=== PATIENT | male | born 1955 | race Caucasian/White ===

== ENCOUNTER 2018-08-14 17:10 | Observation (INO) ==
[2018-08-14 17:53] LABS: INR 0.95; PROTIME 13.2 Seconds (11.0-16.0)
[2018-08-14 17:54] LABS: PTT 32.6 Seconds (22.3-41.8)
[2018-08-14 17:56] LABS: AGAP 6; ALBUMIN 3.8 g/dL (3.5-5.0); ALKALINE PHOSPHATASE 98 U/L (32-122); BUN 20 mg/dL (8-22); CALCIUM 8.7 mg/dL (8.8-10.2); CHLORIDE 101 mmol/L (98-107); CK PROFILE 97 U/L (24-204); COSMO 287; CREATININE 1.1 mg/dL (0.7-1.2); ESTIMATED GFR > 60; GLUCOSE 81 mg/dL (70-104); GOT 33 U/L (10-34); GPT 46 U/L (10-44); POTASSIUM 4.6 mmol/L (3.5-5.1); SODIUM 143 mmol/L (136-145); TCO2 36 mmol/L (25-35); TOTAL PROTEIN 6.5 g/dL (6.3-8.3)
[2018-08-14 17:57] LABS: BE 8.7 mmoll (-3.0-3.0); BLOOD TYPE ARTERIAL; HCO3-(ACT) 31.5 mmoll (20.0-26.0); METHB 0.8 % (0.0-1.5); O2(CT) 14.6 mL/dL (15.0-23.0); PO2(98.6) 59 mmHg (60-100); SAMPLE BLOOD; THB 11.8 g/dL (11.5-17.4); pH(98.6) 7.34 (7.35-7.45)
[2018-08-14 18:08] LABS: BASO# 0.06 X1000 (0.0-0.2); BASO% 1.2 % (0.0-0.8); EOS# 0.03 X1000 (0.0-0.7); EOS% 0.6 % (0.0-10.0); HEMATOCRIT 40.6 % (42.0-52.0); HEMOGLOBIN 11.4 g/dL (14.0-18.0); IMM GRAN# 0.02 X1000 (0.0-0.04); IMM GRAN% 0.4 % (0.0-0.5); LYMPH# 1.67 X1000 (1.2-3.4); LYMPH% 33.9 % (20.5-51.1); MCH 22.8 PG (27-31); MCHC 28.1 g/dL (33-37); MONO# 0.65 X1000 (0.11-0.59); MONO% 13.2 % (1.7-9.3); MPV 11.6 FL (7.4-10.4); NEUT% 50.7 % (42.2-75.2); PLT 156 X1000 (130-400); RBC 5.01 XMIL (4.7-6.1); RDW 18.4 % (11.5-14.5); WBC 4.93 X1000 (4.8-10.8)
[2018-08-14 18:11] LABS: MODALITY CANNULA; O2HB 88.1 % (95.0-99.0); PCO2(98.6) 68 mmHg (35-45)
[2018-08-14 18:12] LABS: ALLEN TEST NO
--- NOTE | 2018-08-14 18:28 | Diag Imaging Result Doc PS360 ---
EXAM: CHEST-2 VIEWS 08/14/2018 HISTORY: sob TECHNIQUE: Two views the chest COMMENT: There is subsegmental platelike atelectasis in the lingula and right middle lobe. The heart size is enlarged. The inspiration is suboptimal. There are no previous studies. IMPRESSION: Bibasilar atelectasis. Electronically signed by Kobe Fernando 08/14/2018 6:26 PM
--- NOTE | 2018-08-14 18:42 | PROVIDER DOCUMENTATION ---
This chart was entered by Annie Ling Scribe, acting as scribe for Zack Astudillo MD. HPI-Respiratory General - General Source: patient, family () <Zack Astudillo - Last Filed: 08/14/18 18:42> <Neto Garcia - Last Filed: 08/15/18 06:03> - General Chief Complaint: Shortness of Breath Stated Complaint: SHORTNESS OF BREATH Time Seen by Provider: 08/14/18 17:45 Allergies/Adverse Reactions: Patient Allergies Allergy/AdvReac Type Severity Reaction Status Date / Time No Known Allergies Allergy Verified 08/14/18 20:51 Home Medications: Home Medication List Medication Instructions Recorded Confirmed Last Taken Type Atorvastatin Calcium 80 mg PO DAILY 08/14/18 08/14/18 Unknown History Azithromycin 250 mg PO DAILY 08/14/18 08/14/18 Unknown History Bupropion HCl [Wellbutrin Xl] 1 tab PO DAILY 08/14/18 08/14/18 Unknown History Cyanocobalamin (Vitamin B-12) 100 mcg PO DAILY 08/14/18 08/14/18 Unknown History [Cyanocobalamin] Furosemide 40 mg PO BID 08/14/18 08/14/18 Unknown History Ibuprofen 800 mg PO DAILY 08/14/18 08/14/18 Unknown History Methocarbamol 500 mg PO BID 08/14/18 08/14/18 Unknown History Omeprazole 40 mg PO DAILY 08/14/18 08/14/18 Unknown History Potassium Chloride 10 meq PO DAILY 08/14/18 08/14/18 Unknown History Sertraline HCl 100 mg PO DAILY 08/14/18 08/14/18 Unknown History Topiramate 100 mg PO DAILY 08/14/18 08/14/18 Unknown History - History of Present Illness-Resp Nature of Presenting Problem: 63 yom presents to ED by EMS c/o SOB, confusion, muscle weakness and chills since Friday that has gotten worse today. Pt states he can't even stand up on his legs. Pt is on 2liters of o2 at home. Pt denies fever, nausea or chest pain. Pt has hx of COPD and PTSD. (Zack Astudillo) Review of Systems - Adult - REVIEW OF SYSTEMS - ADULT Constitutional: reports: see HPI, chills, fatique. denies: fever Eyes: reports: no symptoms reported Ears, Nose, Mouth & Throat: reports: no symptoms reported Cardiovascular: reports: no symptoms reported Respiratory: reports: see HPI, cough, shortness of breath. denies: chronic cough Gastrointestinal: reports: no symptoms reported Genitourinary: reports: no symptoms reported Musculoskeletal: reports: see HPI, muscle weakness. denies: bone pain, frequent leg cramps Integumentary: reports: no symptoms reported Neurological: reports: no symptoms reported Psychiatric: reports: no symptoms reported Endocrine: reports: no symptoms reported Hematologic/Lymphatic: reports: no symptoms reported Allergic/Immunologic: reports: no symptoms reported All Other Systems: Reviewed and Negative <Zack Astudillo - Last Filed: 08/14/18 18:42> - REVIEW OF SYSTEMS - ADULT ROS:: limited per condition <Neto Garcia - Last Filed: 08/15/18 06:03> Past History - Adult - PAST MEDICAL HISTORY-ADULT Review of Records: reports: Nursing Assessment Review, Medications Reviewed, Social history reviewed & non-contributory. Major Childhood Illnesses: reports: denies history Cardiovascular: reports: denies history Respiratory: reports: denies history Gastrointestinal: reports: denies history Obstetrical/Gynecological: reports: denies history Genitourinary: reports: denies history Musculoskeletal: reports: denies history Neurological: reports: denies history Endocrine/Immune: reports: denies history Other Conditions: reports: denies history - IMMUNIZATION STATUS Childhood Immunizations: See Nurse Assessment Flu Vaccine: See Nurse Assessment - FAMILY HISTORY Family History: reviewed, not pertinent - SOCIAL HISTORY Smoking: denies <Zack Astudillo - Last Filed: 08/14/18 18:42> Physical Exam-General - PHYSICAL EXAM-ADULT Initial Vital Signs Reviewed: Yes - EYES Eyes: PERRL/EOMI, pink conjunctivae. negative: photophobia - HEAD, EARS, NOSE, MOUTH & THROAT HENMT: moist mucous membranes, normal ENT inspection. negative: angioedema - NECK Neck: non-tender, normal inspection. negative: Brudzinski's sign, carotid bruit - RESPIRATORY Respiratory: decreased breath sounds (bilateral) - CARDIOVASCULAR Cardiovascular: normal peripheral pulses, regular rate, rhythm, no edema, no gallop, no JVD, no murmur. negative: bradycardia, tachycardia - GASTROINTESTINAL (ABDOMEN) Abdominal Exam: normal bowel sounds, non tender, soft. negative: rigid, rebound, tenderness - LYMPHATIC Lymphatic: no adenopathy. negative: striations - MUSCULOSKELETAL Back Exam: normal inspection. negative: swelling Extremity: normal range of motion, normal inspection. negative: deformity - SKIN Integumentary: normal color, normal turgor, warm/dry. negative: diaphoresis, jaundice <Zack Astudillo - Last Filed: 08/14/18 18:42> - PHYSICAL EXAM-ADULT Initial Vital Signs Reviewed: Yes - CONSTITUTIONAL General Appearance: lethargic <Neto Garcia - Last Filed: 08/15/18 06:03> Progress - PLAN OF CARE/RESULTS Result Diagrams: 08/14/18 17:24 08/14/18 17:24 - XRAY 1 XRAY Study: Chest Impression: Abnormal (atelectasis bibasilar) <Zack Astudillo - Last Filed: 08/14/18 18:42> - PLAN OF CARE/RESULTS Result Diagrams: 08/14/18 17:24 08/14/18 17:24 - XRAY 1 XRAY Interpretation: increased vascular markings with borderline cardiomegaly - CONSULTS/PCP/HOSPITALIST Notification #1 *Consult/PCP/Hospitalist*: Dr. Tavarez, hospitalist Time Discussed: 21:10 Consult Disposition: Admit <Neto Garcia - Last Filed: 08/15/18 06:03> - PLAN OF CARE/RESULTS Progress/Plan/Lab Results: Laboratory Results - last 24 hr 08/14/18 08/14/18 08/14/18 17:24 17:24 17:24 WBC 4.93 RBC 5.01 Hgb 11.4 L Hct 40.6 L MCV 81.0 MCH 22.8 L MCHC 28.1 L RDW Std Deviation 18.4 H Plt Count 156 MPV 11.6 H Immature Gran % (Auto) 0.4 Neut % (Auto) 50.7 Lymph % (Auto) 33.9 Lassen % (Auto) 13.2 H Eos % (Auto) 0.6 Baso % (Auto) 1.2 H Immature Gran # (Auto) 0.02 Neut # (Auto) 2.50 Lymph # (Auto) 1.67 Lassen # (Auto) 0.65 H Eos # (Auto) 0.03 Baso # (Auto) 0.06 PT INR PTT (Actin FS) Specimen Type Sample Site pH pCO2 pO2 HCO3 Base Excess Oxyhemoglobin ABG O2 Sat (Calculated) ABG O2 Saturation ABG Carboxyhemoglobin ABG Methemoglobin Saul Test A-a O2 Difference Total Hemoglobin Lactate Liter Flow Blood Gas Modality FiO2 % Sodium 143 Potassium 4.6 Chloride 101 Carbon Dioxide 36 H Anion Gap 6 BUN 20 Creatinine 1.1 Estimated GFR/1.73 m2 > 60 BUN/Creatinine Ratio 18 Glucose 81 Calculated Osmolality 287 Calcium 8.7 L Magnesium Total Bilirubin 0.60 AST 33 ALT 46 H Alkaline Phosphatase 98 Creatine Kinase 97 Troponin T Rnx-V-Vsyhnvsdkch Pept 5434 H Total Protein 6.5 Albumin 3.8 Globulin 3.0 Albumin/Globulin Ratio 1.0 08/14/18 08/14/18 08/14/18 17:24 17:24 17:24 WBC RBC Hgb Hct MCV MCH MCHC RDW Std Deviation Plt Count MPV Immature Gran % (Auto) Neut % (Auto) Lymph % (Auto) Lassen % (Auto) Eos % (Auto) Baso % (Auto) Immature Gran # (Auto) Neut # (Auto) Lymph # (Auto) Lassen # (Auto) Eos # (Auto) Baso # (Auto) PT 13.2 INR 0.95 PTT (Actin FS) 32.6 Specimen Type Sample Site pH pCO2 pO2 HCO3 Base Excess Oxyhemoglobin ABG O2 Sat (Calculated) ABG O2 Saturation ABG Carboxyhemoglobin ABG Methemoglobin Saul Test A-a O2 Difference Total Hemoglobin Lactate Liter Flow Blood Gas Modality FiO2 % Sodium Potassium Chloride Carbon Dioxide Anion Gap BUN Creatinine Estimated GFR/1.73 m2 BUN/Creatinine Ratio Glucose Calculated Osmolality Calcium Magnesium 2.0 Total Bilirubin AST ALT Alkaline Phosphatase Creatine Kinase Troponin T < 0.010 Uuz-O-Haamyctrpbs Pept Total Protein Albumin Globulin Albumin/Globulin Ratio 08/14/18 17:43 WBC RBC Hgb Hct MCV MCH MCHC RDW Std Deviation Plt Count MPV Immature Gran % (Auto) Neut % (Auto) Lymph % (Auto) Lassen % (Auto) Eos % (Auto) Baso % (Auto) Immature Gran # (Auto) Neut # (Auto) Lymph # (Auto) Lassen # (Auto) Eos # (Auto) Baso # (Auto) PT INR PTT (Actin FS) Specimen Type ARTERIAL Sample Site R BRACHIAL pH 7.34 L pCO2 68 H* pO2 59 L HCO3 31.5 H Base Excess 8.7 H Oxyhemoglobin 88.1 L* ABG O2 Sat (Calculated) 14.6 L ABG O2 Saturation 92.0 L ABG Carboxyhemoglobin 3.40 H ABG Methemoglobin 0.8 Saul Test NO A-a O2 Difference 84.0 Total Hemoglobin 11.8 Lactate 0.60 Liter Flow 3.0 Blood Gas Modality CANNULA FiO2 % 32.0 Sodium Potassium Chloride Carbon Dioxide Anion Gap BUN Creatinine Estimated GFR/1.73 m2 BUN/Creatinine Ratio Glucose Calculated Osmolality Calcium Magnesium Total Bilirubin AST ALT Alkaline Phosphatase Creatine Kinase Troponin T Opc-M-Umnwkxuddwu Pept Total Protein Albumin Globulin Albumin/Globulin Ratio Orders Category Date Time Status [facility] Routine AdmDCTranf 08/14/18 21:18 Active Activity - Strict Bedrest ORDERED Care 08/14/18 21:18 Active Cardiac Monitoring DIRECTED Care 08/14/18 17:22 Completed Neurological Check Q4H Care 08/14/18 21:20 Active Oxygen Therapy- ED Nursing DIRECTED Care 08/14/18 17:22 Completed Resuscitation Status Routine Care 08/14/18 21:18 Ordered Saline Loc NOW Care 08/14/18 17:22 Completed Vital Signs Order Q 4-HR ASSESS Care 08/14/18 21:18 Active Z-Document. for Tele Applied ORDERED Care 08/14/18 21:21 Completed Heart Healthy Diet Diet 08/14/18 21:21 Active CHEST-2 VIEWS [RAD] Stat Exams 08/14/18 17:22 Completed ABG [RESP] Routine Lab 08/14/18 17:43 Completed ABG [RESP] Routine Lab 08/15/18 06:00 Ordered BMP [BASIC METABOLIC PANEL] [CHEM] Stat Lab 08/15/18 06:00 Ordered CBC WITH ELECTRONIC DIFF [HEME] Stat Lab 08/14/18 17:24 Completed CBC WITH ELECTRONIC DIFF [HEME] Stat Lab 08/14/18 21:16 Ordered CBC WITH ELECTRONIC DIFF [HEME] Stat Lab 08/15/18 06:00 Ordered CK PROFILE [SP CHEM] Stat Lab 08/14/18 17:24 Completed COMPREHENSIVE METABOLIC PANEL [CHEM] Stat Lab 08/14/18 17:24 Completed MAGNESIUM [CHEM] Stat Lab 08/14/18 17:24 Completed PRO B-NATRIURETIC PEPTIDE Stat Lab 08/14/18 17:24 Completed PROTIME WITH INR [COAG] Stat Lab 08/14/18 17:24 Completed PTT [COAG] Stat Lab 08/14/18 17:24 Completed TROPONIN T Stat Lab 08/14/18 17:24 Completed bnp [PRO B-NATRIURETIC PEPTIDE] Stat Lab 08/15/18 07:00 Ordered Albuterol 2.5MG/Ipratrop 0.5MG [Duoneb (A & A)] Med 08/14/18 23:30 Active 3 ml INH RTQ4H Furosemide [Lasix] Med 08/14/18 20:43 Discontinued 40 mg IV NOW ONE Furosemide [Lasix] Med 08/15/18 09:00 Active 40 mg IV Q12H Methylprednisolone Sod Succ [Solu-Medrol] Med 08/14/18 22:00 Active 125 mg IV Q8H Aerosol Treatments Routine Oth 08/14/18 21:21 Completed Aerosol Treatments Stat Oth 08/14/18 21:21 Completed BIPAP Urgent Oth 08/14/18 18:31 Completed Telemetry [OM.EQ] Routine Oth 08/14/18 21:18 Active EKG [EKG] Stat Ther 08/14/18 17:22 Ordered Transfer/Admit Order [TRANSFER] Routine Transfer 08/14/18 21:24 Completed Departure - Departure Date of Disposition Decision: 08/14/18 Certified Medical Emergency: Emergent - Critical Care Note This patient required my direct & personal management of CC.: Yes <Zack Astudillo - Last Filed: 08/14/18 18:42> - Departure Time of Disposition Decision: 22:42 Certified Medical Emergency: Emergent - Critical Care Note This patient required my direct & personal management of CC.: Yes Total Time (mins): 121 Critical Care Statement: This patient required my direct personal management to treat or rule out processes, the absence of which, could potentiallly result in sudden, clinically significant life or limb threatening deterioration. <Neto Garcia - Last Filed: 08/15/18 06:03> - Departure DIAGNOSIS: COPD (chronic obstructive pulmonary disease), Hypercarbia CHF (congestive heart failure) Qualifiers: Heart failure type: unspecified Heart failure chronicity: unspecified Qualified Code(s): I50.9 - Heart failure, unspecified Disposition: ADMITTED INPATIENT 09 Condition: Stable Attestation - Physician/ TRACIE Attestation Patient care was provided by Advanced Practice Provider:: No The physician spent face to face time with patient:: Yes Advanced Practice Provider documentation review:: Supervising physician onsite and consulted in the evaluation and care of this patient. The physician did have a face to face encounter with the patient. <Zack Astudillo - Last Filed: 08/14/18 18:42> - Physician/ TRACIE Attestation Patient care was provided by Advanced Practice Provider:: No The physician spent face to face time with patient:: Yes Advanced Practice Provider documentation review:: Supervising physician onsite and consulted in the evaluation and care of this patient. The physician did have a face to face encounter with the patient. - Physician/ TRACIE Attestation #2 Patient care was provided by Advanced Practice Provider:: No The physician spent face to face time with patient:: Yes Advanced Practice Provider documentation review:: Supervising physician onsite and consulted in the evaluation and care of this patient. The physician did have a face to face encounter with the patient. <Neto Garcia - Last Filed: 08/15/18 06:03> This chart was documented by the indicated scribe, (Annie Ling Scribe) and accurately reflects the services I performed and decisions made by me, Zack Astudillo MD, as attested by the provider's signature.
[2018-08-14] MEDS ORDERED: LASIX IV ONE (20:43)
[2018-08-14] MEDS: SOLU-MEDROL IV SCH (22:17)
[2018-08-14] MEDS: DUONEB (A & A) INH SCH (23:14)
[2018-08-15] MEDS: DUONEB (A & A) INH SCH ×6 (03:12→23:38)
[2018-08-15] MEDS: SOLU-MEDROL IV SCH ×3 (06:10→23:40)
--- NOTE | 2018-08-15 07:39 | Diag Imaging Result Doc PS360 ---
EXAM: CHEST-PORTABLE 08/15/2018 HISTORY: sob TECHNIQUE: AP portable at 0712 COMMENT: There are platelike opacities in both lung bases. This has worsened somewhat in the right middle lobe than on the previous study of 08/14/2018. The left costophrenic angle is better expanded. IMPRESSION: Waxing and waning subsegmental atelectasis as described. Electronically signed by Kobe Fernando 08/15/2018 7:37 AM
[2018-08-15 07:58] LABS: BASO# 0.05 X1000 (0.0-0.2); BASO% 0.9 % (0.0-0.8); EOS# 0.07 X1000 (0.0-0.7); EOS% 1.2 % (0.0-10.0); HEMATOCRIT 40.5 % (42.0-52.0); HEMOGLOBIN 11.4 g/dL (14.0-18.0); IMM GRAN# 0.01 X1000 (0.0-0.04); IMM GRAN% 0.2 % (0.0-0.5); LYMPH# 1.23 X1000 (1.2-3.4); LYMPH% 21.1 % (20.5-51.1); MCH 22.4 PG (27-31); MCHC 28.1 g/dL (33-37); MCV 79.4 FL (81-99); MONO# 0.58 X1000 (0.11-0.59); MONO% 9.9 % (1.7-9.3); MPV 11.5 FL (7.4-10.4); NEUT# 3.89 X1000 (1.4-6.5); NEUT% 66.7 % (42.2-75.2); PLT 171 X1000 (130-400); RDW 18.7 % (11.5-14.5); WBC 5.83 X1000 (4.8-10.8)
[2018-08-15 08:06] LABS: AGAP 8; BUN 20 mg/dL (8-22); CALCIUM 8.6 mg/dL (8.8-10.2); CHLORIDE 102 mmol/L (98-107); COSMO 289; ESTIMATED GFR > 60; GLUCOSE 83 mg/dL (70-104); POTASSIUM 3.8 mmol/L (3.5-5.1); SODIUM 144 mmol/L (136-145); TCO2 35 mmol/L (25-35)
[2018-08-15] MEDS ORDERED: LASIX IV SCH (09:00)
[2018-08-15 09:12] LABS: BE 7.9 mmoll (-3.0-3.0); BLOOD TYPE ARTERIAL; HCO3-(ACT) 30.8 mmoll (20.0-26.0); METHB 0.8 % (0.0-1.5); O2(CT) 14.8 mL/dL (15.0-23.0); SAMPLE BLOOD; SAO2 86.6 % (95.0-100.0); THB 12.6 g/dL (11.5-17.4); pH(98.6) 7.38 (7.35-7.45)
[2018-08-15 09:16] LABS: PCO2(98.6) 59 mmHg (35-45); PO2(98.6) 47 mmHg (60-100)
[2018-08-15 09:17] LABS: ALLEN TEST YES; MODALITY BI PAP; O2HB 83.8 % (95.0-99.0)
[2018-08-15] MEDS ORDERED: NICODERM PATCH TD PRN (16:33)
[2018-08-15] MEDS ORDERED: ROCEPHIN 1 GM in NS 50 ML IV SCH (16:45)
[2018-08-15] MEDS ORDERED: ZITHROMAX 500 MG/NS 500 MG/250 ML IVPB IV SCH (16:45)
--- NOTE | 2018-08-15 17:52 | HISTORY AND PHYSICAL ---
HISTORY OF PRESENT ILLNESS: This is a 63-year-old male with history of COPD. He has pretty severe COPD. He is on home oxygen at 3 L. He has been having worsening shortness of breath over the last 24 hours. Reports cough and congestion. He says the quality of his sputum is not changed. He has a significant smoking history, about 50 pack-years. He has severe dyspnea. He also has profound weakness where his legs just give out, and he falls down frequently. Yesterday evening he was altered and confused and had muscle weakness, chills. He is on 3 L. Workup in the ER was consistent with COPD exacerbation. He was also found to have hypercapnic respiratory failure, and he was admitted for treatment. There was some concern over heart failure because his proBNP was elevated. Chest x-ray was read as bibasilar atelectasis. He denies any cardiac history. PAST MEDICAL HISTORY: 1. COPD alone. No hypertension. 2. GERD. 3. PTSD. 4. Hyperlipidemia. PAST SURGICAL HISTORY: Negative. FAMILY HISTORY: He reports as negative. SOCIAL HISTORY: He has a [id number] history of smoking. He is a , not currently working. No alcohol. His significant other appears to be a nurse of some sort. ALLERGIES: No known drug allergies. MEDICATIONS: He is on Wellbutrin 300 daily, topiramate 100 daily, sertraline 100 daily, omeprazole 40 daily, methocarbamol 500 b.i.d., Lasix 40 b.i.d., atorvastatin 80 daily. REVIEW OF SYSTEMS: No weight issues. Otherwise negative on a 10 point review of systems. PHYSICAL EXAMINATION: VITAL SIGNS: Blood pressure 141/70, heart rate of 68, respiratory rate 20, temperature 97.6, 96% on 3 L. CARDIOVASCULAR: Regular rate and rhythm. PULMONARY: Bilateral breath sounds. Clear to auscultation. GI: Soft, nontender, nondistended. Bowel sounds were positive. EXTREMITIES: No clubbing or cyanosis. LYMPHATIC EXAM: No peripheral edema. NEUROLOGICAL: Nonfocal. LABORATORY DATA: White count was 5.8, H H 11 and 40, platelets 171. Had a pH of 7.38, pCO2 of 59, PaO2 of 47. ProBNP was 5434, down to 2292. The patient's chest x-ray shows intermittent atelectasis. PROBLEM LIST: A 63-year-old male with chronic obstructive pulmonary disease, presenting with chronic obstructive pulmonary disease exacerbation and hypercapnic respiratory failure. 1. Acute chronic obstructive pulmonary disease exacerbation. We will continue breathing treatments, steroids. Advised on smoking cessation and will follow closely. 2. Acute hypercapnic respiratory failure. We have advised on being compliant with the BiPAP. He may even need that evaluated. Apparently, he has qualified and is supposed to get home BiPAP, but he refuses to wear it, and again he has persistent smoking. There are some compliance issues here, but he reports that he is going to work on compliance. 3. Posttraumatic stress disorder. He appears to be stable on current medications. We discussed tobacco cessation. 4. Elevated proBNP, but that seems to be better. I am not sure he clearly has any heart failure. We may pursue echo when available. cc: Mick Tavarez MD
[2018-08-15] MEDS: LASIX PO SCH (20:32)
[2018-08-15] MEDS: ROBAXIN PO SCH (20:33)
[2018-08-15] MEDS ORDERED: LIPITOR PO SCH (21:00)
[2018-08-16] MEDS ORDERED: LOVENOX SUBQ SCH (06:00)
[2018-08-16] MEDS: SOLU-MEDROL IV SCH (06:25)
[2018-08-16 06:30] LABS: BE 9.5 mmoll (-3.0-3.0); BLOOD TYPE ARTERIAL; HCO3-(ACT) 32.2 mmoll (20.0-26.0); METHB 1.2 % (0.0-1.5); O2(CT) 15.7 mL/dL (15.0-23.0); O2HB 92.1 % (95.0-99.0); PO2(98.6) 67 mmHg (60-100); SAMPLE BLOOD; THB 12.1 g/dL (11.5-17.4); pH(98.6) 7.42 (7.35-7.45)
[2018-08-16 06:33] LABS: ALLEN TEST YES; MODALITY BI PAP; PCO2(98.6) 55 mmHg (35-45)
[2018-08-16] MEDS ORDERED: PRILOSEC PO SCH (07:00)
[2018-08-16] MEDS: DUONEB (A & A) INH SCH ×2 (08:12→13:28)
[2018-08-16] MEDS ORDERED: TOPAMAX PO SCH (09:00)
[2018-08-16] MEDS ORDERED: ZOLOFT PO SCH (09:00)
[2018-08-16] MEDS ORDERED: WELLBUTRIN XL PO SCH (09:00)
[2018-08-16] MEDS ORDERED: VITAMIN B-12 PO SCH (09:00)
[2018-08-16] MEDS: ROBAXIN PO SCH (10:13)
[2018-08-16] MEDS: LASIX PO SCH (10:13)
[2018-08-16 11:34] VITALS: BP 113/63
--- NOTE | 2018-08-16 15:32 | DISCHARGE SUMMARY ---
ADMISSION DATE: 08/14/2018 DISCHARGE DATE: 08/16/2018 DISCHARGE DIAGNOSES: 1. COPD exacerbation. 2. Acute hypercapnic respiratory failure. 3. Persistent tobacco abuse. 4. Gastroesophageal reflux disease. 5. PTSD. HOSPITAL COURSE: This 63-year-old gentleman with COPD, he still smokes. He is on oxygen at 3 L. He has qualified for CPAP, but refuses to wear it. He came in with shortness of breath, weakness and was admitted and put on BiPAP. Initial blood gas was 7.34, pCO2 78. After BiPAP, 7.38, 59 and 47, and then another night of BiPAP 7.4, 255 and 67. His chest x-ray just showed some atelectasis. No focal pneumonia. He was placed on breathing treatments, oxygen, steroids, intravenous steroids, but he was not placed on antibiotics initially, but when I saw him on the we started Rocephin and azithromycin. He had been on azithromycin previously. In any case, he was much improved and basically requesting to go home the next day and he had a wedding he had to attend, but his sats were 91% on 3 L but up to 96%, afebrile. Clinically no wheezing on exam. He was felt stable for discharge. His proBNP was elevated, but he did not clearly have any pulmonary edema. DISCHARGE MEDICATIONS: As follows: Lipitor 80, vitamin B12 100 daily, Lasix 40 b.i.d., methocarbamol 500 b.i.d., Prilosec 40 daily, potassium 10 daily, sertraline 100 daily, topiramate 100 daily, Wellbutrin 300 daily, DuoNeb q.6, Omnicef 300 p.o. b.i.d. for 7 days, prednisone taper and Symbicort. PLAN: He was also advised not to smoke. He has stopped smoking. He has NicoDerm patches at home. So we will encourage him to stop smoking. We will continue to follow and recommend followup. [facility] Recommend that he do [facility] at [facility] and get that request filled out. cc: Mick Tavarez MD
--- NOTE | 2018-08-17 09:27 | EKG Report ---
Test Performed on : 08/14/2018 5:14:19 PM Test Reason : sob Blood Pressure : / mmHG Vent. Rate : 067 BPM Atrial Rate : 067 BPM P-R Int : 170 ms QRS Dur : 116 ms QT Int : 434 ms P-R-T Axes : 031 -28 -73 degrees QTc Int : 458 ms Normal sinus rhythm. Incomplete right bundle branch block ST & T wave abnormality, consider inferior ischemia ST & T wave abnormality, consider anterolateral ischemia Abnormal ECG No previous ECGs available Unconfirmed Result
== END 2018-08-16 14:15 | disposition home or self-care (01) ==
LOC: P.ED 17:10 → P.MEDSURG 22:06 → INTOOBSV 22:06
PROVIDERS: ATTEND Internal Medicine
CPT/HCPCS: 71010; 71020; 71045; 71046; 80048; 80053; 82550; 82805; 83735; 83880; 84484; 85025; 85610; 85730; 93005; 93306; 94640; 94660; 94761; 96374; 96375; 99285; A9270; J0456; J0696; J1650; J1940; J2930

== ENCOUNTER 2019-05-23 15:24 | Inpatient (IN) ==
[2019-05-23] MEDS ORDERED: ASPIRIN PR ONE (15:34)
[2019-05-23] MEDS ORDERED: ASPIRIN PO ONE (15:34)
[2019-05-23 16:03] LABS: BASO# 0.03 X1000 (0.0-0.2); BASO% 0.2 % (0.0-0.8); EOS# 0.07 X1000 (0.0-0.7); EOS% 0.5 % (0.0-10.0); HEMATOCRIT 47.7 % (42.0-52.0); HEMOGLOBIN 14.3 g/dL (14.0-18.0); IMM GRAN# 0.03 X1000 (0.0-0.04); IMM GRAN% 0.2 % (0.0-0.5); LYMPH# 1.14 X1000 (1.2-3.4); LYMPH% 7.6 % (20.5-51.1); MCH 27.7 PG (27-31); MCV 92.4 FL (81-99); MONO# 0.75 X1000 (0.11-0.59); MPV 10.6 FL (7.4-10.4); NEUT# 13.07 X1000 (1.4-6.5); NEUT% 86.5 % (42.2-75.2); PLT 231 X1000 (130-400); RBC 5.16 XMIL (4.7-6.1); RDW 15.7 % (11.5-14.5); WBC 15.09 X1000 (4.8-10.8)
[2019-05-23 16:06] LABS: INR 0.82; PROTIME 11.7 Seconds (11.0-16.0)
[2019-05-23 16:07] LABS: PTT 30.8 Seconds (22.3-41.8)
[2019-05-23 16:14] LABS: BE 0.9 mmoll (-3.0-3.0); BLOOD TYPE ARTERIAL; HCO3-(ACT) 25.4 mmoll (20.0-26.0); METHB 1.1 % (0.0-1.5); O2(CT) 18.5 mL/dL (15.0-23.0); PO2(98.6) 58 mmHg (60-100); SAMPLE BLOOD; SAO2 94.2 % (95.0-100.0); THB 14.8 g/dL (11.5-17.4); pH(98.6) 7.33 (7.35-7.45)
[2019-05-23 16:29] LABS: AGAP 11; ALBUMIN 4.2 g/dL (3.5-5.0); ALKALINE PHOSPHATASE 95 U/L (32-122); BUN 11 mg/dL (8-22); CALCIUM 9.7 mg/dL (8.8-10.2); CHLORIDE 102 mmol/L (98-107); CK PROFILE 68 U/L (24-204); COSMO 286; CREATININE 1.1 mg/dL (0.7-1.2); ESTIMATED GFR > 60; GLUCOSE 190 mg/dL (70-104); GOT 11 U/L (10-34); GPT 7 U/L (10-44); POTASSIUM 4.6 mmol/L (3.5-5.1); SODIUM 141 mmol/L (136-145); TCO2 28 mmol/L (25-35); TOTAL PROTEIN 7.2 g/dL (6.3-8.3)
--- NOTE | 2019-05-23 16:39 | Diag Imaging Result Doc PS360 ---
EXAM: CHEST-2 VIEWS 05/23/2019 HISTORY: SOB TECHNIQUE: PA and lateral chest COMMENT: There is bibasilar subsegmental atelectasis which has worsened since 08/15/2018. The possibility of bronchopneumonia cannot be excluded. IMPRESSION: Atelectasis versus pneumonia in both lower lobes. Electronically signed by Kobe Fernando 05/23/2019 4:36 PM
[2019-05-23 16:55] LABS: URINE SOURCE CLEAN CATCH
[2019-05-23 17:00] LABS: BILIRUBIN URINE NEGATIVE (NEGATIVE); BLOOD URINE NEGATIVE (NEGATIVE); COLOR YELLOW; GLUCOSE URINE NEGATIVE (NEGATIVE); KETONE URINE NEGATIVE (NEGATIVE); LEUKOCYTES URINE NEGATIVE (NEGATIVE); NITRITE URINE NEGATIVE (NEGATIVE); PROTEIN URINE 30 mg/dL (NEGATIVE); SP GRAVITY URINE 1.023; TURBIDITY URINE HAZY (CLEAR); UROBILINOGEN URINE 2 mg/dL (NORMAL)
[2019-05-23 17:01] LABS: UR EPITHELIAL CELLS <10 /HPF (<10); URINE BACTERIA NEGATIVE /HPF; URINE RBC <10 /HPF (<10); URINE WBC <10 /HPF (<10)
--- NOTE | 2019-05-23 17:13 | EKG Report ---
Test Performed on : 05/23/2019 3:55:59 PM Test Reason : SOB Blood Pressure : / mmHG Vent. Rate : 104 BPM Atrial Rate : 104 BPM P-R Int : 174 ms QRS Dur : 126 ms QT Int : 348 ms P-R-T Axes : 029 -24 023 degrees QTc Int : 457 ms Sinus tachycardia. Nonspecific intraventricular block Abnormal ECG When compared with ECG of 14-AUG-2018 17:14, Vent. rate has increased BY [address] no longer depressed in Anterior leads T wave inversion no longer evident in Inferior leads T wave inversion no longer evident in Anterolateral leads Unconfirmed Result
[2019-05-23 18:11] LABS: ALLEN TEST YES; MODALITY CANNULA
[2019-05-23 18:12] LABS: O2HB 88.9 % (95.0-99.0); PCO2(98.6) 53 mmHg (35-45)
[2019-05-23] MEDS ORDERED: ZOFRAN IV PRN (18:32)
[2019-05-23] MEDS ORDERED: TYLENOL PO PRN (18:32)
[2019-05-23] MEDS: ROCEPHIN 1 GM in NS 50 ML IV SCH (19:21)
--- NOTE | 2019-05-23 19:22 | HISTORY AND PHYSICAL ---
CHIEF COMPLAINT: Shortness of breath. HISTORY OF PRESENT ILLNESS: The patient is a very pleasant 62-year-old male who presented to the hospital. Does have a known history of COPD on 2 L of oxygen at home. He has a history of ARDS. He started talking getting short of breath and became very fearful what happened to him in the past therefore came to the hospital. With his ARDS he actually had tracheotomy. States he has not been drinking well. He has had cough, congestion, increased work of breathing, he has been mild dehydrated, denies any flu-like symptoms although was exposed the flu over 20 days ago. ALLERGIES: No known drug allergies. MEDICATIONS: Atorvastatin 80, bupropion 1 daily, Lasix 40 b.i.d., methocarbamol 500 b.i.d., omeprazole, potassium 10, Zoloft 100, 50 b.i.d., Symbicort and albuterol. REVIEW OF SYSTEMS: Denies fevers, chills. Does have cough, congestion, increased work of breathing shortness of breath, denies any production to his cough denies any pedal edema, orthopnea, PND. Denies paroxysmal sweating, muscle aches, dysuria, frequency, urgency, constipation, melena, hematochezia, weight loss or weight gain. PAST MEDICAL HISTORY: Significant for high cholesterol, depression, B12 deficiency, reflux, COPD, chronic hypoxic respiratory failure. FAMILY HISTORY: Noncontributory. SOCIAL HISTORY: Patient continues to smoke although less than a pack a day. PHYSICAL: Vital signs reviewed, temperature 97.9 degrees, pulse 115, respiratory 24, BP 130/77, saturating 98% on 2 L.General: Patient is awake, he is pleasant, he is in no true current distress although he is lying in the bed with the head elevated 20 degrees. HEENT: Normocephalic. Neck: Supple. CV: Regular rate. Chest: Clear, no crackles currently, no wheezing. Decreased air movement but equal. Abdomen: Soft nondistended. Extremities: Moves all extremities. Neuro: No changes. LABS: WBC is 15. CMP normal. BNP 158. Chest x-ray demonstrates atelectasis versus pneumonia. ASSESSMENT: 1. Pneumonia. 2. Leukocytosis. 3. Chronic obstructive pulmonary disease . 4. Chronic with acute worsening of hypoxic respiratory failure. 5. Hyperglycemia. 6. Reflux. PLAN: We are going to admit patient the hospital, IV fluids, antibiotics, breathing treatments, oxygen, restart his medications and follow. cc: Jeferson Hickman MD MTDD
[2019-05-23] MEDS: DUONEB (A & A) INH PRN ×2 (19:32→23:14)
[2019-05-23] MEDS ORDERED: DOXYCYCLINE 100 MG in NS 250 ML IV SCH (20:00)
[2019-05-23] MEDS: ROBAXIN PO SCH (23:44)
[2019-05-23] MEDS: LASIX PO SCH (23:45)
[2019-05-23] MEDS: TOPAMAX PO SCH (23:59)
[2019-05-24 05:54] LABS: HEMATOCRIT 43.6 % (42.0-52.0); HEMOGLOBIN 12.7 g/dL (14.0-18.0); MCH 26.8 PG (27-31); MCHC 29.1 g/dL (33-37); MPV 10.5 FL (7.4-10.4); RBC 4.74 XMIL (4.7-6.1); RDW 15.8 % (11.5-14.5); WBC 10.77 X1000 (4.8-10.8)
[2019-05-24 05:59] LABS: ESTIMATED GFR > 60
[2019-05-24] MEDS: DOXYCYCLINE 100 MG in NS 250 ML IV SCH ×2 (06:02→18:39)
[2019-05-24 06:06] LABS: AGAP 9; ALBUMIN 3.3 g/dL (3.5-5.0); ALKALINE PHOSPHATASE 76 U/L (32-122); BUN 11 mg/dL (8-22); CALCIUM 8.9 mg/dL (8.8-10.2); CHLORIDE 105 mmol/L (98-107); COSMO 283; CREATININE 0.9 mg/dL (0.7-1.2); GLUCOSE 101 mg/dL (70-104); GOT 10 U/L (10-34); GPT < 5 U/L (10-44); SODIUM 142 mmol/L (136-145); TCO2 28 mmol/L (25-35); TOTAL PROTEIN 6.6 g/dL (6.3-8.3)
[2019-05-24] MEDS ORDERED: NS 1,000 ML IV SCH (07:00)
[2019-05-24] MEDS: ROBAXIN PO SCH ×2 (08:15→21:47)
[2019-05-24] MEDS: WELLBUTRIN XL PO SCH (08:15)
[2019-05-24] MEDS: LASIX PO SCH ×2 (08:16→21:47)
[2019-05-24] MEDS: VITAMIN B-12 PO SCH (08:16)
[2019-05-24] MEDS: TOPAMAX PO SCH ×2 (08:16→21:47)
[2019-05-24] MEDS: PRILOSEC PO SCH (08:16)
[2019-05-24] MEDS: KLOR-CON PO SCH (08:16)
[2019-05-24] MEDS: ZOLOFT PO SCH (08:17)
[2019-05-24] MEDS ORDERED: VITAMIN B-12 PO SCH (09:00)
[2019-05-24] MEDS: DUONEB (A & A) INH PRN ×2 (09:02→14:41)
--- NOTE | 2019-05-24 19:34 | PROGRESS NOTE ---
DATE: 05/24/2019 SUBJECTIVE: Patient notes that he is feeling a lot better, still having some cough, congestion and shortness of breath. Denies any fevers or chills. OBJECTIVE: Vital signs: Temperature 98.7 degrees, pulse 84, respiratory rate 18, BP 129/71. General: Patient is pleasant. He is in no distress. HEENT: Normocephalic. Neck: Supple. Cardiovascular: Regular rate. Chest: Positive rhonchi, no crackles. No wheezing. Extremities: Moves all extremities. Neurologic: No changes. Skin: Warm, dry and no rashes. ASSESSMENT: 1. Pneumonia. 2. Leukocytosis. 3. Chronic obstructive pulmonary disease. 4. Hypoxic respiratory failure, chronic. 5. Hyperglycemia. PLAN: We are going to continue IV antibiotics. Continue to follow. If he improves, he can be discharged home tomorrow. cc: Jeferson Hickman MD
[2019-05-24] MEDS ORDERED: LIPITOR PO SCH (21:00)
[2019-05-24] MEDS: ROCEPHIN 1 GM in NS 50 ML IV SCH (22:00)
[2019-05-25] MEDS: PRILOSEC PO SCH (06:39)
[2019-05-25] MEDS: DUONEB (A & A) INH PRN ×2 (07:30→14:55)
[2019-05-25 07:58] VITALS: BP 129/79
--- NOTE | 2019-05-25 08:59 | Diag Imaging Result Doc PS360 ---
EXAM: CHEST-2 VIEWS HISTORY: hypoxia TECHNIQUE: Two views COMPARISON: 05/23/2019 FINDINGS: There are increased interstitial markings in the lower lungs. No cardiomegaly. No pulmonary edema. No pleural effusions. IMPRESSION: Worsening atelectasis or pneumonia in the lung bases Electronically signed by Jerry Marcos 05/25/2019 8:57 AM
[2019-05-25] MEDS ORDERED: DOXYCYCLINE PO SCH (09:00)
[2019-05-25] MEDS: TOPAMAX PO SCH (10:12)
[2019-05-25] MEDS: KLOR-CON PO SCH (10:12)
[2019-05-25] MEDS: ZOLOFT PO SCH (10:12)
[2019-05-25] MEDS: WELLBUTRIN XL PO SCH (10:12)
[2019-05-25] MEDS: ROBAXIN PO SCH (10:12)
[2019-05-25] MEDS: LASIX PO SCH (10:13)
[2019-05-25] MEDS: VITAMIN B-12 PO SCH (10:13)
--- NOTE | 2019-05-25 15:42 | Diag Imaging Result Doc PS360 ---
EXAM: CT THORAX W/WO CONTRAST HISTORY: dyspnea TECHNIQUE: CT chest with and without intravenous contrast COMPARISON: None. FINDINGS: No pleural effusions. No aortic aneurysm or dissection. No cardiomegaly. There are small mediastinal and hilar nodes. No central pulmonary emboli. There are small nodular infiltrates in the right lung as well as bibasilar atelectasis or scarring. No consolidation. Limited images through the upper abdomen reveal a cholecystectomy. Tiny hiatal hernia. IMPRESSION: 1.Tiny nodular infiltrates 2.Basilar atelectasis or scarring This exam was performed using automated exposure control, adjustment of mA or kV according to patient size, and/or use of iterative reconstruction technique. Electronically signed by Jerry Marcos 05/25/2019 3:39 PM
--- NOTE | 2019-05-26 12:20 | DISCHARGE SUMMARY ---
ADMISSION DATE: 05/23/2019 DISCHARGE DATE: 05/25/2019 ADMITTING DIAGNOSES: 1. Pneumonia. 2. Leukocytosis. 3. Chronic obstructive pulmonary disease. 4. Chronic obstructive pulmonary disease with acute worsening of hypoxia with respiratory failure. 5. Hyperglycemia. 6. Gastroesophageal reflux disease. DISCHARGE DIAGNOSIS: 1. Pneumonia. 2. Leukocytosis. 3. Chronic obstructive pulmonary disease. 4. Hypoxic respiratory failure, chronic. 5. Hyperglycemia. PROCEDURES: Chest x-ray done on 05/23/2019 showed atelectasis versus pneumonia in both lower lobes. Chest x-ray done on 05/25/2019 showed worsening atelectasis or pneumonia in the lung bases. Chest CT done on 05/25/2019 showed tiny nodular infiltrates and bibasilar atelectasis or scarring. HOSPITAL COURSE: Mr. Boo is a 62-year-old male who presented to the ER with a known history of COPD and wears 2 L oxygen at home and a known history of ARDS. He had been getting short of breath and was fearful that he was developing ARDS. He also was complaining of cough, congestion and increased work of breathing with mild dehydration. Chest x-ray did show pneumonia. He was also noted to have a leukocytosis. The patient was admitted to the medical floor. He was placed on IV fluid hydration. IV antibiotics, breathing treatments, oxygen, home medications were restarted. Symptoms have improved. The patient is feeling much better. Repeat chest x-ray did show worsening atelectasis or pneumonia. A CT scan was performed. This resulted to show above bibasilar scarring. The patient is going to be discharged home today as he is feeling much better. The patient will be discharged home on Omnicef and doxycycline and his home O2. DISCHARGE MEDICATIONS: 1. Atorvastatin calcium 80 mg p.o. daily. 2. Vitamin B12 100 mcg p.o. daily. 3. Furosemide 40 mg p.o. b.i.d. 4. Methocarbamol 500 mg p.o. b.i.d. 5. Omeprazole 40 mg p.o. daily. 6. Potassium chloride 10 mEq p.o. daily. 7. Sertraline HCL 100 mg p.o. daily. 8. Topiramate 50 mg p.o. b.i.d. 9. Wellbutrin XL 300 mg 1 tablet p.o. daily. 10. Doxycycline 100 mg p.o. b.i.d. 11. Albuterol and Atrovent inhaled routine q.6 hours as needed. 12. Omnicef 300 mg p.o. b.i.d. 13. Symbicort inhaler inhale b.i.d. DISCHARGE DIET: The patient is resume healthy heart diet as tolerated. DISCHARGE ACTIVITY: The patient is to resume activity as tolerated. DISCHARGE INSTRUCTIONS: The patient is to follow up with his woodyard crane operator in 1 week. If he does not have a woodyard crane operator, he is to call our physician referral hotline at to obtain a list of providers who are currently taking new patients. For all other questions, concerns, patient is to call his woodyard crane operator. Dictated by JEANMARIE Castellano for Jeferson Hickman MD cc: Jeferson Hickman MD MTDD
== END 2019-05-25 18:02 | disposition home or self-care (01) | DRG 194 ==
LOC: P.ED 15:24 → P.MEDSURG 19:32
PROVIDERS: ATTEND Family Medicine

== ENCOUNTER 2019-08-21 09:34 | Inpatient (IN) ==
--- NOTE | 2019-08-21 09:58 | PROVIDER DOCUMENTATION ---
HPI-Abdominal Pain/GI Problem - General Stated Complaint: FEVER/COUGH Time Seen by Provider: 08/21/19 09:52 Source: patient Allergies/Adverse Reactions: Patient Allergies Allergy/AdvReac Type Severity Reaction Status Date / Time No Known Allergies Allergy Verified 08/21/19 09:54 Home Medications: Home Medication List Medication Instructions Recorded Confirmed Last Taken Type Atorvastatin Calcium 80 mg PO DAILY 08/14/18 08/21/19 05/23/19 History Bupropion HCl [Wellbutrin Xl] 1 tab PO DAILY 08/14/18 08/21/19 05/23/19 History Cyanocobalamin (Vitamin B-12) 100 mcg PO DAILY 08/14/18 08/21/19 05/23/19 History [Cyanocobalamin] Furosemide 40 mg PO BID 08/14/18 08/21/19 05/23/19 History Omeprazole 40 mg PO DAILY 08/14/18 08/21/19 05/23/19 History Potassium Chloride 10 meq PO DAILY 08/14/18 08/21/19 05/23/19 History Sertraline HCl 100 mg PO DAILY 08/14/18 08/21/19 05/23/19 History Topiramate 50 mg PO BID 08/14/18 08/21/19 05/23/19 History Albuterol 2.5MG/Ipratrop 0.5MG 3 ml INH RTQ6H #120 neb 08/16/18 08/21/19 05/23/19 Rx [Duoneb (A & A)] Budesonide/Formoterol Fumarate 10.2 gm INHALATION BID #1 08/16/18 08/21/19 05/23/19 Rx [Symbicort 160-4.5 Mcg Inhaler] hfa.[id number].[email or web address] - History of Present Illness-ABD Nature of Presenting Problems: Patient states he started having vomiting and diarrhea yesterday. He had about 6 episodes of each. He has shortness of breath also. He has COPD. He is on 3 liters at night. Abdominal Pain Onset Location: reports: generalized abdomen Pain Radiation: reports: no radiation Quality of Pain: reports: dull Severity in ED: reports: mild Onset/Duration: reports: 24 hours ago Timing: reports: still present Activities at Onset: reports: none Exposure to sick contacts?: No Modifying Factors: improves with: nothing Associated Symptoms: reports: shortness of breath Last BM: this morning (normal) Dark Stools Present?: reports: none noticed Rectal Bleeding: reports: none # of Diarrhea Episodes: 6 Rectal Pain: reports: none # of Vomiting Episodes: 6 Emesis Description: reports: clear Bruising or Bleeding Gums?: No Similar Symptoms Previously?: No Recently seen or treated by another doctor?: No Review of Systems - Adult - REVIEW OF SYSTEMS - ADULT Constitutional: reports: fever Eyes: reports: no symptoms reported Ears, Nose, Mouth & Throat: reports: no symptoms reported Cardiovascular: reports: no symptoms reported Respiratory: reports: see HPI Gastrointestinal: reports: see HPI Musculoskeletal: reports: no symptoms reported Integumentary: reports: no symptoms reported Neurological: reports: no symptoms reported Psychiatric: reports: no symptoms reported Endocrine: reports: no symptoms reported Hematologic/Lymphatic: reports: no symptoms reported Allergic/Immunologic: reports: no symptoms reported Past History - Adult - PAST MEDICAL HISTORY-ADULT Review of Records: reports: Old Records Reviewed, Nursing Assessment Review, Medications Reviewed, Social history reviewed & non-contributory. Major Childhood Illnesses: reports: denies history Cardiovascular: reports: denies history Respiratory: reports: denies history Gastrointestinal: reports: denies history Obstetrical/Gynecological: reports: denies history Genitourinary: reports: denies history Musculoskeletal: reports: denies history Neurological: reports: denies history Endocrine/Immune: reports: denies history Other Conditions: reports: denies history - IMMUNIZATION STATUS Childhood Immunizations: See Nurse Assessment Flu Vaccine: See Nurse Assessment - FAMILY HISTORY Family History: reviewed, not pertinent Physical Exam-General - PHYSICAL EXAM-ADULT Initial Vital Signs Reviewed: Yes - CONSTITUTIONAL General Appearance: alert, mild distress - EYES Eyes: PERRL/EOMI, pink conjunctivae, anisocoria - HEAD, EARS, NOSE, MOUTH & THROAT HENMT: normocephalic/atraumatic, moist mucous membranes - NECK Neck: non-tender, full range of motion, supple - RESPIRATORY Respiratory: chest non-tender, normal breath sounds, rhonchi, wheezing - CARDIOVASCULAR Cardiovascular: normal peripheral pulses, regular rate, rhythm, no edema, no gallop, no JVD, no murmur - GASTROINTESTINAL (ABDOMEN) Abdominal Exam: normal bowel sounds, soft, tenderness (mild and diffuse) - LYMPHATIC Lymphatic: no adenopathy - MUSCULOSKELETAL Back Exam: normal inspection Extremity: normal range of motion, non-tender, normal gait - SKIN Integumentary: normal color, normal turgor, warm/dry - NEUROLOGIC Neurologic: grossly normal - PSYCHIATRIC Psych/Mental Status: normal mood/affect Progress - PLAN OF CARE/RESULTS Progress/Plan/Lab Results: Orders Category Date Time Status Isolation Precautions Setup NOW Care 08/21/19 09:48 Active CHEST-PORTABLE [RAD] Stat Exams 08/21/19 09:48 Ordered Result Diagrams: 08/21/19 10:05 08/21/19 10:05 Departure - Departure Date of Disposition Decision: 08/21/19 Time of Disposition Decision: 11:32 DIAGNOSIS: Pneumonia Qualifiers: Pneumonia type: due to unspecified organism Laterality: bilateral Lung location: lower lobe of lung Qualified Code(s): J18.9 - Pneumonia, unspecified organism Chronic obstructive pulmonary disease Qualifiers: COPD type: COPD with acute lower respiratory infection Qualified Code(s): J44.0 - Chronic obstructive pulmonary disease with (acute) lower respiratory infection Disposition: ADMITTED INPATIENT 09 Certified Medical Emergency: Emergent Condition: Serious Referrals and Follow-Ups: None,PCP [Primary Care Provider] - - Critical Care Note This patient required my direct & personal management of CC.: No Attestation - Physician/ TRACIE Attestation Patient care was provided by Advanced Practice Provider:: No The physician spent face to face time with patient:: Yes Advanced Practice Provider documentation review:: Supervising physician onsite and consulted in the evaluation and care of this patient. The physician did have a face to face encounter with the patient.
[2019-08-21] MEDS ORDERED: NS 1,000 ML IV ONE ×3 (10:11→10:53)
[2019-08-21 10:37] LABS: BASO# 0.02 X1000 (0.0-0.2); BASO% 0.2 % (0.0-0.8); EOS# 0.02 X1000 (0.0-0.7); EOS% 0.2 % (0.0-10.0); HEMATOCRIT 46.9 % (42.0-52.0); HEMOGLOBIN 14.3 g/dL (14.0-18.0); IMM GRAN# 0.01 X1000 (0.0-0.04); IMM GRAN% 0.1 % (0.0-0.5); LYMPH# 0.68 X1000 (1.2-3.4); LYMPH% 5.9 % (20.5-51.1); MCH 27.9 PG (27-31); MCHC 30.5 g/dL (33-37); MCV 91.6 FL (81-99); MONO# 0.37 X1000 (0.11-0.59); MONO% 3.2 % (1.7-9.3); MPV 11.4 FL (7.4-10.4); NEUT% 90.4 % (42.2-75.2); PLT 197 X1000 (130-400); RBC 5.12 XMIL (4.7-6.1); RDW 16.6 % (11.5-14.5)
[2019-08-21 10:37] LABS: BE -1.1 mmoll (-3.0-3.0); BLOOD TYPE ARTERIAL; HCO3-(ACT) 23.7 mmoll (20.0-26.0); METHB 1.1 % (0.0-1.5); O2(CT) 17.6 mL/dL (15.0-23.0); PCO2(98.6) 45 mmHg (35-45); PO2(98.6) 50 mmHg (60-100); SAMPLE BLOOD; SAO2 88.9 % (95.0-100.0); THB 14.8 g/dL (11.5-17.4); pH(98.6) 7.35 (7.35-7.45)
[2019-08-21 10:41] LABS: ALLEN TEST YES; MODALITY ROOM AIR; O2HB 84.8 % (95.0-99.0)
--- NOTE | 2019-08-21 10:56 | Diag Imaging Result Doc PS360 ---
EXAM: CHEST-PORTABLE HISTORY: cough TECHNIQUE: Single view COMPARISON: 05/25/2019 FINDINGS: The lungs are well expanded. No cardiomegaly. No pulmonary edema. There are infiltrates in the mid and lower right lung. Tiny infiltrate or scarring in the left base. IMPRESSION: Right sided pneumonia Electronically signed by Jerry Marcos 08/21/2019 10:53 AM
[2019-08-21 11:00] LABS: AGAP 11; ALBUMIN 4.1 g/dL (3.5-5.0); ALKALINE PHOSPHATASE 107 U/L (32-122); BUN 10 mg/dL (8-22); CALCIUM 9.6 mg/dL (8.8-10.2); CHLORIDE 103 mmol/L (98-107); COSMO 287; CREATININE 1.2 mg/dL (0.7-1.2); ESTIMATED GFR > 60; GLUCOSE 179 mg/dL (70-104); GOT 14 U/L (10-34); GPT 9 U/L (10-44); SODIUM 142 mmol/L (136-145); TCO2 29 mmol/L (25-35); TOTAL PROTEIN 7.4 g/dL (6.3-8.3)
[2019-08-21 11:12] LABS: INR 0.88; PROTIME 12.4 Seconds (11.0-16.0)
[2019-08-21 11:13] LABS: PTT 31.4 Seconds (22.3-41.8)
[2019-08-21 11:16] LABS: INFLUENZA A NEGATIVE (NEGATIVE); INFLUENZA B NEGATIVE (NEGATIVE)
[2019-08-21] MEDS ORDERED: ZOSYN 3.375 GM in NS 50 ML IV ONE (11:28)
[2019-08-21] MEDS ORDERED: TYLENOL PO PRN ×2 (11:29→13:17)
[2019-08-21] MEDS ORDERED: DUONEB (A & A) INH SCH (11:30)
--- NOTE | 2019-08-21 11:32 | ED EKG INTERP ---
This chart was entered by Bob Urrutia Scribe, acting as scribe for Darrick Villanueva DO. EKG Interpretation - EKG Time of EKG reading by physician:: 10:34 EKG Read and Signed by:: Darrick Villanueva EKG Interpretation (*Must complete 3 of following elements*): Abnormal Rate: 108 Rhythm: Sinus Tach QRS: RBB (Incomplete) Attestation - Physician/ TRACIE Attestation Patient care was provided by Advanced Practice Provider:: No The physician spent face to face time with patient:: Yes Advanced Practice Provider documentation review:: Supervising physician onsite and consulted in the evaluation and care of this patient. The physician did have a face to face encounter with the patient. This chart was documented by the indicated scribe, (Bob Urrutia Scribe) and accurately reflects the services I performed and decisions made by Rich vaughn Thomas E., DO, as attested by the provider's signature.
[2019-08-21] MEDS ORDERED: ZOFRAN IV PRN (13:17)
[2019-08-21] MEDS ORDERED: NS 1,000 ML IV SCH (13:30)
[2019-08-21] MEDS: DOXYCYCLINE 100 MG in NS 250 ML IV SCH (13:45)
[2019-08-21] MEDS: VENTOLIN HFA INH SCH ×4 (14:14→23:23)
--- NOTE | 2019-08-21 14:41 | Diag Imaging Result Doc PS360 ---
EXAM: CT ANGIOGRM PULMONARY ARTERIES HISTORY: elevated d dimer/short of breath TECHNIQUE: CT chest with intravenous contrast. Pulmonary two protocol with MIP images. COMPARISON: None. FINDINGS: Multinodular right-sided infiltrates. These are in each lobe. No pleural effusions. No cardiomegaly. No aortic aneurysm or dissection. Normal opacification of the pulmonary arteries and their proximal branches. Small mediastinal nodes. Small hiatal hernia. Limited images through the upper abdomen reveal a cholecystectomy. IMPRESSION: Right-sided pneumonia This exam was performed using automated exposure control, adjustment of mA or kV according to patient size, and/or use of iterative reconstruction technique. Electronically signed by Jerry Marcos 08/21/2019 2:38 PM
[2019-08-21 16:24] LABS: URINE SOURCE CLEAN CATCH
[2019-08-21 17:33] LABS: BILIRUBIN URINE NEGATIVE (NEGATIVE); BLOOD URINE NEGATIVE (NEGATIVE); COLOR YELLOW; GLUCOSE URINE NEGATIVE (NEGATIVE); KETONE URINE NEGATIVE (NEGATIVE); LEUKOCYTES URINE NEGATIVE (NEGATIVE); NITRITE URINE NEGATIVE (NEGATIVE); UR EPITHELIAL CELLS <10 /HPF (<10); URINE BACTERIA NEGATIVE /HPF; URINE RBC <10 /HPF (<10); URINE WBC <10 /HPF (<10); UROBILINOGEN URINE NORMAL (NORMAL)
[2019-08-21 17:42] LABS: PROTEIN URINE NEGATIVE (NEGATIVE); SP GRAVITY URINE 1.024; TURBIDITY URINE HAZY (CLEAR)
[2019-08-21 17:55] LABS: URINE CASTS NONE SEEN; URINE CRYSTALS NONE SEEN; URINE YEAST NONE SEEN
--- NOTE | 2019-08-21 18:25 | EKG Report ---
Test Performed on : 08/21/2019 10:34:34 AM Test Reason : shortness of breath Blood Pressure : / mmHG Vent. Rate : 108 BPM Atrial Rate : 108 BPM P-R Int : 178 ms QRS Dur : 116 ms QT Int : 348 ms P-R-T Axes : 025 -25 024 degrees QTc Int : 466 ms Sinus tachycardia. Possible Left atrial enlargement Incomplete right bundle branch block Septal infarct , age undetermined Abnormal ECG When compared with ECG of 23-MAY-2019 15:55, No significant change was found Unconfirmed Result
--- NOTE | 2019-08-21 19:16 | HISTORY AND PHYSICAL ---
CHIEF COMPLAINT: Shortness of breath, fever. HISTORY OF PRESENT ILLNESS: The patient presented to the hospital with vomiting and diarrhea that started yesterday. States he has had several episodes of each. He has had increased cough, increased shortness of breath, and increased work of breathing. He has had low-grade fevers. States he has oxygen at home. Notes his symptoms have continued to worsen. REVIEW OF SYSTEMS: Generalized abdominal pain. Positive cough, congestion, and shortness of breath. Positive increased work of breathing. States he has had pneumonia in the past and this feels similar. Increased work of breathing. Increased shortness of breath. Denies dysuria, frequency, urgency, hesitancy, polyuria, or polydipsia. Denies skin rashes, weight loss, or weight gain. PAST MEDICAL HISTORY: Significant for COPD, chronic hypoxic respiratory failure, B12 deficiency, depression, and reflux. ALLERGIES: No known drug allergies. MEDICATIONS: Atorvastatin 80, Wellbutrin, B12, potassium, Zoloft 100, Topamax 50, Symbicort twice daily, and albuterol as needed. FAMILY HISTORY: Positive for hypertension. SOCIAL HISTORY: The patient continues to smoke. Denies alcohol or other illicit substances. PHYSICAL EXAMINATION: VITAL SIGNS: Reviewed. He is afebrile. Blood pressure is stable. Respiratory 22. GENERAL: The patient is awake and pleasant. He is in minimal respiratory distress after a breathing treatment. HEENT: Normocephalic. NECK: Supple. CARDIOVASCULAR: Regular rate. CHEST: Decreased breath sounds. Positive rhonchi throughout. No crackles. No wheezing. ABDOMEN: Soft and nondistended. Diffusely but minimally tender. EXTREMITIES: Moves all extremities. NEUROLOGIC: No changes. ASSESSMENT: 1. Chronic obstructive pulmonary disease with exacerbation. 2. Acute hypoxic respiratory failure. 3. Hyperglycemia. 4. Bilateral lower lobe pneumonia. PLAN: We are going to continue the patient in the hospital. Continue antibiotics, oxygen, and breathing treatments. Place him on fluids. We will follow. cc: Jeferson Hickman MD
[2019-08-21] MEDS: SYMBICORT 160/4.5 MICROGM INHALER INH SCH (19:50)
[2019-08-21] MEDS: ZOSYN 3.375 GM in NS 50 ML IV SCH (20:08)
[2019-08-21] MEDS: TOPAMAX PO SCH (21:56)
[2019-08-22] MEDS: ZOSYN 3.375 GM in NS 50 ML IV SCH ×4 (01:19→20:08)
[2019-08-22] MEDS: DOXYCYCLINE 100 MG in NS 250 ML IV SCH ×2 (03:21→16:45)
[2019-08-22] MEDS: VENTOLIN HFA INH SCH ×6 (03:29→23:30)
[2019-08-22 06:42] LABS: HEMATOCRIT 39.6 % (42.0-52.0); HEMOGLOBIN 12.3 g/dL (14.0-18.0); MCH 28.1 PG (27-31); MCHC 31.1 g/dL (33-37); MCV 90.4 FL (81-99); RBC 4.38 XMIL (4.7-6.1); WBC 12.9 X1000 (4.8-10.8)
[2019-08-22 06:43] LABS: MPV 10.9 FL (7.4-10.4); RDW 15.7 % (11.5-14.5)
[2019-08-22 06:55] LABS: AGAP 11; ALBUMIN 2.8 g/dL (3.5-5.0); ALKALINE PHOSPHATASE 71 U/L (32-122); BUN 10 mg/dL (8-22); CALCIUM 8.6 mg/dL (8.8-10.2); CHLORIDE 108 mmol/L (98-107); COSMO 278; CREATININE 1.1 mg/dL (0.7-1.2); ESTIMATED GFR > 60; GLUCOSE 99 mg/dL (70-104); GOT 11 U/L (10-34); GPT 6 U/L (10-44); MAGNESIUM 1.8 mg/dL (1.5-2.7); POTASSIUM 4.2 mmol/L (3.5-5.1); SODIUM 140 mmol/L (136-145); TCO2 21 mmol/L (25-35); TOTAL PROTEIN 5.7 g/dL (6.3-8.3)
[2019-08-22] MEDS: SYMBICORT 160/4.5 MICROGM INHALER INH SCH ×2 (08:18→19:45)
[2019-08-22] MEDS: TOPAMAX PO SCH ×2 (10:47→20:08)
[2019-08-22] MEDS: WELLBUTRIN XL PO SCH (10:47)
[2019-08-22] MEDS: ZOLOFT PO SCH (11:40)
[2019-08-22] MEDS: PRILOSEC PO SCH (11:40)
[2019-08-22] MEDS: KLOR-CON PO SCH (11:40)
--- NOTE | 2019-08-22 14:38 | PROGRESS NOTE ---
DATE: 08/22/2019 SUBJECTIVE: Patient notes that he is feeling better, breathing easier. Denies any fevers or chills. OBJECTIVE: Vital signs: Temperature 98.3, pulse 82, respiratory rate 18, BP 117/60. General: Patient is in minimal distress. He is much improved from yesterday's exam. HEENT: Normocephalic. Neck: Supple. Cardiovascular: Regular rate. Chest: Good air movement. No crackles. No wheezing. Abdomen: Soft, obese, nondistended. Extremities: Moves all extremities. Neurologic: No changes. ASSESSMENT: 1. Chronic obstructive pulmonary disease with exacerbation. 2. Acute hypoxic respiratory failure. 3. Hyperglycemia. 4. Bilateral pneumonia. 5. Coronavirus Disease 2019 test pending. PLAN: Discussed with the patient that I am unsure of where he obtained his COVID-19 testing information. Discussed that we typically have the results back in 2 days, although Sundays do not count. Discussed it does not typically take 1 to 2 weeks to get that result back. Regardless, nothing would change in his current care as he is improving. He is on antibiotics. He is on breathing treatments. We will continue to follow. Hopefully he can improve and be discharged home tomorrow with or without results. cc: Jeferson Hickman MD
[2019-08-22] MEDS: LASIX PO SCH (20:08)
[2019-08-23] MEDS: ZOSYN 3.375 GM in NS 50 ML IV SCH (01:58)
[2019-08-23] MEDS: VENTOLIN HFA INH SCH ×2 (03:30→08:41)
[2019-08-23] MEDS: DOXYCYCLINE 100 MG in NS 250 ML IV SCH (04:59)
[2019-08-23 06:00] VITALS: BP 97/58
[2019-08-23] MEDS: PRILOSEC PO SCH (06:36)
[2019-08-23] MEDS: SYMBICORT 160/4.5 MICROGM INHALER INH SCH (08:40)
[2019-08-23] MEDS ORDERED: OMNICEF PO SCH (09:00)
[2019-08-23] MEDS: TOPAMAX PO SCH (09:55)
[2019-08-23] MEDS: KLOR-CON PO SCH (09:55)
[2019-08-23] MEDS: ZOLOFT PO SCH (09:55)
[2019-08-23] MEDS: LASIX PO SCH (09:55)
[2019-08-23] MEDS: WELLBUTRIN XL PO SCH (09:55)
[2019-08-23] MEDS ORDERED: DOXYCYCLINE PO SCH (18:00)
--- NOTE | 2019-08-23 20:19 | DISCHARGE SUMMARY ---
ADMISSION DATE: 08/21/2019 DISCHARGE DATE: 08/23/2019 PRIMARY CARE PHYSICIAN: None. ADMISSION DIAGNOSES: 1. An acute chronic obstructive pulmonary disease exacerbation. 2. Acute hypoxic respiratory failure. 3. Hyperglycemia. 4. Bilateral lower lobe pneumonia. DISCHARGE DIAGNOSIS: 1. An acute chronic obstructive pulmonary disease exacerbation. 2. Acute hypoxic respiratory failure. 3. Hyperglycemia. 4. Bilateral lower lobe pneumonia. 5. Coronavirus Disease 2019 suspected, ruled out. SUMMARY OF FINDINGS: This is a 64-year-old male who presented to the hospital with vomiting and diarrhea that began the day before arriving, had several episodes of each, also had increased cough, shortness of breath and work of breathing. Had some low-grade fevers, is on O2 at home but the symptoms continued to worsen. He was admitted, found to have a bilateral lower lobe pneumonia, hypoxic respiratory failure that was acute and acute chronic obstructive pulmonary disease exacerbation. Placed on antibiotics, oxygen, breathing treatments. We did test him for the COVID-19 and those results are still pending and he has improved and was felt that he could safely be discharged home to continue with self-quarantine and he would be notified of his results of the COVID-19 screening. DISCHARGE MEDICATIONS: Include DuoNeb q.6 hours, atorvastatin 80 mg p.o. daily, Symbicort 160/4.5 inhalation b.i.d., bupropion 300 mg p.o. daily, cefdinir 300 mg p.o. b.i.d. #10 with no refills, vitamin B12 100 mcg p.o. daily, doxycycline 100 mg p.o. b.i.d., Lasix 40 mg p.o. b.i.d., omeprazole 40 mg p.o. daily, potassium 10 mEq p.o. daily, sertraline 100 mg p.o. daily and topiramate 50 mg p.o. b.i.d. FOLLOWUP: He will need to obtain a primary care physician and follow up with them. TIME SPENT: 35 minutes. Dictated by JEANMARIE Lorenzana for Jeferson Hickman MD cc: JEANMARIE Lorenzana MD
--- NOTE | 2019-08-24 03:31 | DISCHARGE SUMMARY ---
ADMISSION DATE: 08/21/2019 DISCHARGE DATE: 08/23/2019 Patient seen and examined by myself. Full note dictated and discussed with nurse practitioner. On discharge, patient is awake, alert. Much improved. No shortness of breath. Denies any cough. States breathing is better. We will discharge him home on antibiotics. He will follow up outpatient with treatment facility of choice. cc: Jeferson Hickman MD
== END 2019-08-23 10:05 | disposition home or self-care (01) | DRG 871 ==
LOC: P.ED 09:34 → P.MEDSURG 13:53
PROVIDERS: ATTEND Family Medicine